=== PATIENT | male | born 1980 | race Caucasian/White ===

== ENCOUNTER 2024-03-19 07:51 | Outpatient (CLI) | payer OTHER, SELFPAY ==
--- NOTE | 2024-03-19 07:55 | CT_ITS ---
FINAL REPORT TECHNIQUE: Axial CT images were performed through the head. Coronal and sagittal reformatted images were submitted. This study was performed with techniques to keep radiation doses as low as reasonably achievable (ALARA). Individualized dose reduction techniques using automated exposure control or adjustment of mA and/or kV according to the patient's size were employed. CLINICAL HISTORY: Headaches/Migraines that begin behind right eye. COMPARISON: None FINDINGS: The ventricles are normal in size. There is no evidence of hemorrhage. There is no mass or edema identified. There is no abnormal extra-axial fluid seen. There is mild mucoperiosteal thickening in the left frontal and right maxillary sinuses consistent with mild chronic sinusitis. IMPRESSION: No acute intracranial process. Mild mucoperiosteal thickening in the left frontal and right maxillary sinuses consistent with mild chronic sinusitis. Reviewed, Interpreted and Dictated by Addi Donnelly MD Transcribed by Ondina England Authenticated and . [facility]
== END 2024-03-19 23:59 | disposition home or self-care (01) ==
LOC: RAD 07:52
PROVIDERS: PCP Nurse Practitioner Family; Visit Provider Nurse Practitioner Family
DX: R51.9 Headache, unspecified (principal)
CPT/HCPCS: 70450

== ENCOUNTER → 2024-06-29 08:28 | Outpatient (CLI) | payer OTHER, SELFPAY | LOC: SL 08:29 | PROVIDERS: PCP Nurse Practitioner Family; Visit Provider Specialist | DX: G47.30 Sleep apnea, unspecified (principal); G47.00 Insomnia, unspecified | CPT/HCPCS: 95806 ==